=== PATIENT | male | born 2000 | race Two or more races ===

== ENCOUNTER → 2019-04-26 | Outpatient (REF) | payer OTHER | LOC: M SFHCLERA 16:15 | PROVIDERS: ATTEND Physician Assistant | DX: J02.9 Acute pharyngitis, unspecified (principal) ==

== ENCOUNTER → 2020-01-06 | Outpatient (REF) | payer OTHER | LOC: M SMT 16:52 | PROVIDERS: ATTEND Urology | DX: Z30.09 Encounter for other general counseling and advice on contraception (principal) ==

== ENCOUNTER → 2020-02-20 | Outpatient (REF) | payer OTHER ==
[2020-02-20 13:45] LABS: SEMEN APPEARANCE OPAQUE (OPAQUE); SEMEN VOLUME 3.5 ml (2.0-5.0)
[2020-02-20 13:46] LABS: SEMEN VISCOSITY LIQUID (LIQUID); WBC CONCENTRATION >1 M/ml (<=1 M/ml)
== END ==
LOC: M SMT 13:15
PROVIDERS: ATTEND Urology
DX: Z30.09 Encounter for other general counseling and advice on contraception (principal)

== ENCOUNTER → 2020-03-25 | Outpatient (REF) | payer OTHER ==
[2020-03-25 10:11] LABS: SEMEN APPEARANCE OPAQUE (OPAQUE); SEMEN VISCOSITY LIQUID (LIQUID); WBC CONCENTRATION <=1 M/ml (<=1 M/ml)
== END ==
LOC: M SMT 10:01
PROVIDERS: ATTEND Nurse Practitioner Family
DX: Z30.09 Encounter for other general counseling and advice on contraception (principal)